=== PATIENT | male | born 1985 | race Caucasian/White ===

== ENCOUNTER 2018-07-31 16:40 | Emergency (ER) | payer MEDICAID, SELFPAY ==
[2018-07-31 16:41] VITALS: BP 153/102; PULSE 109; RESP 16; TEMP 36.8; O2SAT 97; BMI 36.6
--- NOTE | 2018-07-31 16:55 | ED.VISSUMM ---
- ER Visit Summary Date of Service: 07/31/18 Chief Complaint: Gout left foot History of Present Illness: The patient is a 32 M who has a history of gout. He states he developed pain to the left midfoot to 3 days ago that feels like his prior gout. He states he normally takes indomethacin for flares but urgent care would not prescribe it so he came here. He denies any known injury. He also states his right great toe has been swollen for quite some time with minimal tenderness. Physical Examination: Blood pressure is 153/102, heart rate 109. He is afebrile. Patient sitting upright in bed no acute distress. Head and neck examination unremarkable. Heart is regular rate and rhythm at the time of my exam. Lung sounds are clear. Abdomen is soft and nontender. Left lower extremity examination reveals tenderness palpation of the left midfoot along the proximal metatarsal and metatarsal-tarsal joint. No significant erythema is noted. Right lower extremity examination reveals mild tenderness of the right great toe with IP joint. Arthritic changes are palpated. Skin examination is significant for mild petechial lesions noted to the feet and lower legs bilaterally. I do not see any lesions on the upper extremities. Test Results: CBC was obtained because of the petechial lesions. His platelet count is lower limit of normal at 150,000. Emergency Department Course and Treatment: Test results discussed with the patient. He will be written for a short course of indomethacin and prednisone. He was instructed to have his platelet count rechecked by his primary care doctor. He is to return for worsening lesions or significant bruising. He voices understanding and agreement. Treatment Plan: [] Disposition: Discharge Impression: Gout left foot This note was generated with [employer] dictation software. It may contain incorrect words, spelling, and punctuation that were not noted in review of the chart prior to signing ED Disposition - Plan for ED Patient: Disposition: Home or Assisted Living Instructions: ED Arthritis Gout Prescriptions: Prednisone [Deltasone] 40 mg PO DAILY #10 tablet Indomethacin 50 mg PO TID #12 capsule Referrals: Albaro Hickey MD [NON-STAFF] - 5-7 Days
[2018-07-31 18:10] LABS: Hematocrit 42.1 % (40-54); Hemoglobin 14.8 g/dl (13.0-16.5); Mean Corp Hgb Conc 35.2 g/gl (32-36); Mean Corpuscular Volume 88.3 fL (80-94); Platelet Count 150 K/mm3 (150-450); RBC Distribution Width CV 12.5 % (11.6-14.6); RBC Distribution Width SD 39.9 fl (35.1-43.9); Red Blood Count 4.77 M/mm3 (4.6-6.2)
[2018-07-31 18:11] LABS: Absolute Lymphocyte Count 3.35 X10^3/ul (0.83-4.51); Absolute Neutrophil Count 4.6 X10^3/uL (2.0-7.7); Basophil# 0.03 X10^3/uL; Basophil% 0.3 % (0-1); Eosinophil# 0.12 X10^3/uL; Eosinophils% 1.3 % (0-5); Lymphocyte # 3.35 X10^3/ul (4.0); Lymphocyte % 37.1 % (19-41); Monocyte# 0.92 X10^3/uL; Monocyte% 10.2 % (0-10); Neutrophil # 4.59 X10^3/uL (2.7-7.7); Neutrophil % 50.8 % (47-70); POSITIVE COUNT NO; POSITIVE DIFFERENTIAL NO; POSITIVE MORPHOLOGY NO
[2018-07-31 18:59] VITALS: BP 149/99; PULSE 98; RESP 16; O2SAT 99
== END 2018-07-31 19:02 | disposition home or self-care (01) ==
PROVIDERS: Emergency Provider Emergency Medicine
DX: M10.9 Gout, unspecified (principal)
CPT/HCPCS: 85025; 99282